=== PATIENT | male | born 2005 | race Two or more races ===

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

== ENCOUNTER 2024-06-23 12:43 | Outpatient (REF) | payer MEDICAID, SELFPAY ==
--- OUTSIDE RECORDS SUMMARY | 2024-06-23 14:46 | XMS_ITS | Encounter Summary ---
Author Organization [employer] Address [address] [place] [address] 7 [place] [address] Care Team Providers Care Production Assistant Name Role Phone Amanda Culver MD Primary Care Pro vider Reason for Visit * Reason Onset Date Comments Nurse Triage 06/22/2024 Encounter Details Date Type Department Care Team ([facility] st Contact Info) Description 06/22/2024 Telephone [facility] [address] [place], [place] [phone] Amanda Culver MD [address] [place] [address] Nurse Triage Social History Tobacco Use Types Packs/Day Years Used Date Smoking Tobacco: Never Passive Smoke Exposure: Never Smokeless Tobacco: Never Alcohol Use Standard Drinks/Week Comments Never 0 (1 standard drink = 0.6 oz pur e alcohol) Depression Answer Date Recorded Patient Health Questionnaire-9 Score 8 09/25/2023 Patient Health Questionnaire-9 Score 8 09/25/2023 Last PHQ-9: Questionnaire Data Not on file 0 09/25/2023 Housing Stability Answer Date Recorded What is your housing situation today? I have connie sing 05/23/[address] you li ve. Do you have problems with any of the following? Water leaks 05/23/2023 Food Insecurity Answer Date Recorded Within the past 12 months, y ou worried that your food would run out before you got money to buy more: Never True 01/27/2023 Within the past 12 months,th e food you bought just didn't last and you didn't have enough money to get more: Never True Transportation Answer Date Recorded In the past 12 months, has l ack of transportation kept you from medical appts, meetings, work or from getting things needed for daily living? No 01/27/2023 Utilities Answer Date Recorded In the past 12 months, has t he electric, gas, oil or water company threatened to shut off services in your home? No 01/27/2023 Depression Answer Date Recorded Patient Health Questionnaire-2 Score 2 09/25/2023 Internet Access Answer Date Recorded Internet Access Q1 Yes 12/19/2023 Internet Access Q2 Not on file 12/19/2023 Sex and Gender Information Value Date Recorded Sex Assigned at Male 02/11/2022 10:26 AM EDT Legal Sex Male 10:26 AM EDT Gender Identity Male 02/11/2022 10:26 AM EDT Sexual Orientation Straight 02/11/2022 10 :26 AM EDT documented as of this encounter Miscellaneous Notes * Telephone Encounter - Fide James LPN - 06/22/2024 10:31 AM EDT Triage call to patient Mom with patient present. Patient with concerns of hair loss and weight loss. Reports that weight currently 145 lbs. Mom reports hair loss severe all over top of head. When showering before shampoo patient hair all over his back and shower. No itching or rash reported. Patient confirms that he at times is feeling colder than normal.No new medications no supplements or herbal intake. No recent travel and no noted illness or rash when asked. Disposition reviewed and ASK/ EJeffrey VICE PRESIDENT PROCESS tomorrow at 1130am. Insurance verified at time of call. Protocol Used: No Protocol Available (Adult) Protocol-Based Disposition: See in Office or Video Visit Today or Tomorrow Video visit offer not recorded Positive Triage Question: * Nursing judgment * All higher-acuity triage questions were negative Care Advice Discussed: * Reasons To Call Back - New symptoms develop - You become worse * Telephone Encounter - Patti Mercado - 06/22/2024 10:26 AM EDT Symptoms: Weight Loss, Hair Loss Outcome: Schedule an appointment to be seen within 24 hours Reason: Caller denied all higher acuity questions The caller accepted this outcome. [phone] (chinese) documented in this encounter Plan of Treatment Upcoming Encounters Date Type Department Care Team (Late st Contact Info) Description 07/13/2024 11:00 AM EDT Office Visit [facility] [address] [place] [place] [address] Alyssa Lopez, DMD [address] [place] [address] 08/09/2024 11:00 AM EDT Office Visit [facility] [address] [place] [address] [place] [address] 08/17/2024 1:30 PM EDT Office Visit [facility] [address] [place] [address] Amanda Culver MD [address] [place] [address] documented as of this encounter Visit Diagnoses Not on filedocumented in this encounter Additional Health Concerns Assessment Noted Time PHQ-9 Depression Total Score: 8 09/25/19 24 11:15 AM EDT documented as of this encounter Care Teams Production Assistant Relationship Specialty Start Date End Date Amanda Culver MD [address] [place] [address] PCP - General Internal Medicine 07/23/22 documented as of this encounter
--- OUTSIDE RECORDS SUMMARY | 2024-06-23 14:46 | XMS_ITS | Encounter Summary ---
Author Organization [employer] Address [address] [facility] 7t [place] [address] Care Team Providers Care Bandoleer Packer Name Role Phone Amanda Culver MD Primary Care Pro vider Encounter Details Date Type Department Care Team (Latest Contact Info) Description 06/23/2024 Travel Social History Tobacco Use Types Packs/Day Years [...] your housing situation today? I have connie stewart 05/23/[address] you li [...] AM EDT documented as of this encounter Plan of Treatment Upcoming Encounters Date Type Department Care Team (Late st Contact Info) Description 07/13/2024 11:00 AM EDT Office Visit [facility] [address] [place] [address] Alyssa Lopez, DMD 230 [place] [address] 08/09/2024 11:00 AM EDT Office Visit [facility] [address] [place] [address] Derrick Zeny [address] [place] [address] 08/17/2024 1:30 PM EDT Office Visit [facility] [address] [place] [address] Amanda Culver MD [address] [place] [phone] documented as of this encounter Visit Diagnoses Not on filedocumented in this encounter Additional Health Concerns Assessment Noted Time PHQ-9 Depression Total Score: 8 09/25/19 24 11:15 AM EDT documented as of this encounter Care Teams Bandoleer Packer Relationship Specialty Start Date End Date Amanda Culver MD [address] [place] [address] PCP - General Internal Medicine 07/23/22 documented as of this encounter
--- OUTSIDE RECORDS SUMMARY | 2024-06-23 14:46 | XMS_ITS | Clinical Summary ---
Author Organization [employer] Address [address] [facility] 7t [place] [address] Care Team Providers Care Amusement Ride Operator Name Role Phone Amanda Culver MD Primary Care Pro vider Allergies No known active allergies Medications albuterol 108 (90 Base) MCG/ACT inhaler Inhale 2 puffs every 6 (six) hours if needed for wheezing. 18 g 1 4 09/25/19 25 Active ceramides (CeraVe) moisturizing cream Apply 1 Application. topically if needed for dry skin. 340 g 4 Active triamcinolone (Kenalog) 0.1 % cream Apply topically if needed in the morning and at bedtime (pain and swelling). 30 g 1 4 Active benzoyl peroxide 5 % gel Apply topically 2 times daily. 60 g 2 4 09/25/19 25 Active cetirizine (ZyrTEC) 10 MG tablet Take 1 tablet (10 mg) by mouth Once per day. 30 tablet 2 4 Active Active Problems Problem Noted Date Diagnosed Date Syncope and collapse 09/25/2023 Atopic dermatitis 08/05/2023 Pervasive developmental disorder 08/05/2023 Weight loss 08/05/2023 Dental calculus 07/21/2023 Generalized gingivitis 07/21/2023 Healthcare maintenance 11/19/2022 ADHD 11/19/2022 Asthma 11/19/2022 Anxiety 11/19/2022 Mixed hypercholesterolemia and hypertriglyceride willian 11/14/2022 Prediabetes 11/14/2022 Resolved Problems Problem Noted Date Diagnosed Date Resolved Date Adjustment disorder with mix ed disturbance of emotions and conduct 08/05/2023 09/25/2023 Childhood obesity 08/05/2023 09/25/2023 Decrease in appetite 08/05/2023 024 Decreased thyroid stimulatin g hormone (TSH) level 08/05/2023 09/25/2023 Mental disorder 08/05/2023 09/25/2023 Headache 12/11/2022 09/25/2023 Seizure 12/11/2022 09/25/2023 Subclinical hyperthyroidism 11/19/2022 09/25/2023 Allergic conjunctivitis 11/14/2022 08/0 11/2022 COVID-19 11/14/2022 11/19/2022 Ingrowing nail, right great toe 11/14/2022 11/19/2022 Vitamin D deficiency 11/14/2022 023 Encounters Date Type Department Care Team Description 06/23/2024 11:30 AM EDT Office Visit [facility] [address] [place] [address] Pauly Phelps NP Weight loss (Primary Dx) 06/23/2024 Travel 06/22/2024 Telephone [facility] [address] [place] [phone] Amanda Culver MD Nurse Triage 06/15/2024 11:00 AM EST Office Visit [facility] [address] [place] [address] Alyssa Lopez DMD 05/18/2024 11:00 AM EST Office Visit [facility] [address] [place] [address] Alyssa Lopez DMD from Last 3 Months Immunizations Name Administration Dates Next Due DTaP 11/10/2008, 6,2004,06/07,2004 DTaP / HiB / IPV 05/13/2005, 5,2004,03/20 HPV 9-Valent 11/20/2020, 7,12/11/2015,07/06 Hep A, ped/adol, 2 dose 11/20/2020,11/28/2016, Hep B, Adolescent or Pediatric 2004 Hep B, Unspecified 2004,2004, 004 HiB, unspecified 05/13/2005, 5,2004,03/20 IPV 11/10/2008, 5,2004,03/20 Influenza Whole 03/09/2008,02/11/2005 Influenza injectable quadriv alent preservative free 01/16/2021 Influenza, IIV3, injectable 02/05/2014, 3,03/10/2006 MMR 11/10/2008,02/10/2005 Meningococcal MCV4P ACYW-135 11/20/2020,07/07/19 16 Pneumococcal Conjugate PCV 7 05/13/2005, 02/10/2005,2004,06/07,2004 Tdap 07/07/2015 Varicella 11/10/2008,02/10/2005 Social History Tobacco Use Types Packs/Day Years Used Date Smoking Tobacco: Never Passive Smoke Exposure: Never Smokeless Tobacco: Never Tobacco Cessation:Counseling Given: Not Answered Alcohol Use Standard Drinks/Week Comments Never 0 [...] Orientation Straight 02/11/2022 10 :26 AM EDT Last Filed Vital Signs Vital Sign Reading Time Taken Comments Blood Pressure 133/75 06/23/2024 11:52 AM EDT Pulse 96 06/23/2024 11:52 AM EDT Temperature 36.1 ??C (97 ??F) 06/23/2024 11:52 AM EDT Respiratory Rate 20 06/23/2024 11:52 AM EDT Oxygen Saturation 100% 06/23/2024 11:52 AM EDT Inhaled Oxygen Concentration - - Weight 67.4 kg (148 lb 9.6 oz) 06/23/2024 11:52 AM EDT Height 175.3 cm (5' 9 ) 06/23/2024 11:52 AM EDT Body Mass Index 21.94 06/23/2024 11:52 AM EDT Plan of Treatment Upcoming Encounters Date Type Department Care Team (Late st Contact Info) Description 07/13/2024 11:00 AM EDT Office Visit [facility] [address] [place] [address] Alyssa Lopez, DMD [address] [place] [address] 08/09/2024 11:00 AM EDT Office Visit [facility] [address] [place] [address] Zeny Meza [address] [place] [address] 08/17/2024 1:30 PM EDT Office Visit [facility] [address] [place] [address] Amanda Culver MD [address] [place] [address] Health Maintenance Due Date Last Done Comments Chlamydia and Gonorrhea Screening 2004 Family Planning (PISQ) 01/11/2019 Pneumococcal Vaccine: Pediatrics (0 to 5 Years) and At-Risk Patients (6 to 49) Years) (1 of 2 - PCV) 01/11/2023 05/13/2005, 02/10/2005, 2004, Additional history exists Diabetes: Hemoglobin A1C 11/19/2023 023, 04/27/2021, 11/20/2020 COVID-19 Vaccine ( season) 2023 Influenza Vaccine (#1) 2023 , 02/05/2014, 02/03/2013, Additional history exists Dental Oral Exam 01/21/2024 07/21/2023 Dental Prophylaxis 01/21/2024 07/21/2023, 07/11/2022 SDOH Screening 05/23/2024 05/23/2023 Dental X-Ray: Bitewings 07/21/2024 07/21/2023 Depression Screening 09/24/2024 09/25/2023, 09/25/19 Alcohol/Substance Use Screening 06/23/2025 06/23/2024 Tobacco Screening 06/23/2025 06/23/2024 DTaP/Tdap/Td Vaccines (7 - Td or Tdap) 07/06/2025 07/07/2015, 11/10/2008, 07/12/2005, Additional history exists Dental X-Ray: Full Mouth 10/23/2025 10/22/2022, 0508/2021 Zoster Vaccines (1 of 2) 01/11/2054 RSV Patients and Patients Aged 60 years or older (1 - 1-dose 75+ series) 01/11/2079 Hepatitis B Vaccines Completed 2004, 2004, 2004, Additional history exists HIB Vaccines Completed 05/13/2005, 04/16, 2004, Additional history exists IPV Vaccines Completed 11/10/2008, 04/16, 2004, Additional history exists HPV Vaccines Completed 11/20/2020, 09/2016, 12/11/2015, Additional history exists Hepatitis A Vaccines Completed 11/20/2020, 11/28/2016, 12/11/2015 Meningococcal Vaccine Completed 11/20/2020, 016 HIV Screening Completed 11/18/2022, 04/27/2021 Hepatitis C Screening Completed 11/18/2022 RSV under 20 months Aged Out No longe r eligible based on patient's age to complete this topic Rotavirus Vaccines Aged Out No longer eligible based on patient's age to complete this topic Procedures Procedure Name Priority Date/Time Associated Diagnosis Comments NO CHARGE, PERIODIC ORTHODONTIC TREATMENT VISITS Routine 06/15/2024 11:00 AM EST NO CHARGE, PERIODIC ORTHODONTIC TREATMENT VISITS Routine 05/18/2024 11:00 AM EST PROPHYLAXIS - ADULT Routine 07/21/2023 1 0:00 AM EDT Dental calculus BITEWINGS - 4 RADIOGRAPHIC IMAGES Routine 07/21/2023 10:00 AM EDT Dental calculus PERIODIC ORAL EVALUATION - ESTABLISHED PATIENT Routine 07/21/2023 10:00 AM EDT HEPATITIS C ANTIBODY REFLEX Routine 11/18/2022 11:34 AM EDT HIV ANTIBODY/ANTIGEN ([place] [facility]) Routine 11/18/2022 11:34 AM EDT HEMOGLOBIN A1C Routine 11/18/2022 11:34 AM EDT Health care maintenance from Last 3 Months or Most Recently Relevant to Health Maintenance Results * Hepatitis C Antibody Reflex (11/18/2022 11:34 AM EDT) Hepatitis C Antibody Nonreactive Nonreactive [facility] Comment:Antibodies to HCV no t detected; does not exclude early acuteHCV infection. 11/18/2022 11:3 4 AM EDT 11/18/2022 1:35 PM EDT us Amanda Robert MD LAB BLOOD ORDERAB LES Final Result [facility] [address] [place] [address] [phone] * HIV Ab/Ag (RENITA BASS) (11/18/2022 11:34 AM EDT) HIV AB/AG Nonreactive Nonreactive [facility] Comment:HIV-1 p24 Ag and/or HIV-1/HIV-2 Ab not detected.A test result that is nonreactive does not exclude thepossibility of exposure to or infection with HIV-1 and/orHIV-2. Nonreactive results in this assay for individualswith prior exposure to HIV-1 and/or HIV-2 may be due toantigen and antibody levels that are below the limit ofdetection of this assay.The [employer] [facility] HIV Ag/Ab Combo assay result andsupplemental assay results should be interpreted inconjunction with the patient's clinical presentation,history and other laboratory results. If the results areinconsistent with clinical evidence, additional testing issuggested to confirm the result. 11/18/2022 11:3 4 AM EDT 11/18/2022 1:35 PM EDT us Amanda Robert MD LAB BLOOD ORDERAB LES Final Result [facility] [address] [place] [address] [phone] * Hemoglobin A1c (11/18/2022 11:34 AM EDT) Hemoglobin A1c 5.0 % [facility] Comment:Hemoglobin A1C Refer ence Range Adults: 4.8 - 6.0 % Non diabetic: < 6.0 % Goal: < 7.0 %Additional Action Suggested: > 8.0 %Note: Hemoglobin A1c results are invalid for patients with abnormal amounts of HbF. Blood transfusions may impact the HbA1c concentration in the patient sample. Estimated Average Glucose 97 mg/dL [facility] Comment:eAG = Estimated ave rage glucose which is %A1C expressed asaverage glucose, using the formula of the [id number]-[id number] Glucose study (ADAG), Diabetes Care, Vol.31,#8,2007 Blood Venous blood specimen / Unknown 11/18/2022 11:34 AM EDT 11/18/2022 1:35 PM EDT Amanda Robert MD LAB BLOOD ORDERAB LES Final Result [facility] [address] [place] [address] [phone] from Last 3 Months or Most Recently Relevant to Health Maintenance [place] [address] [place] [address] [facility] [facility] [facility] ST[place] Care Teams Amusement Ride Operator Relationship Specialty Start Date End Date Amanda Culver MD [address] [place] [address] [phone] PCP - General Internal Medicine 07/23/22
--- OUTSIDE RECORDS SUMMARY | 2024-06-23 14:46 | XMS_ITS | Encounter Summary ---
Author Organization [employer] Address [address] [facility] 7t [place] [address] Care Team Providers Care Lost And Found Clerk Name Role Phone Amanda Culver MD Primary Care Pro vider Encounter Details Date Type Department Care Team ([facility] st Contact Info) Description 06/23/2024 11:30 AM EDT Office Visit [facility] [address] [place], [place] [phone] Pauly Phelps NP [address] [place], [place] [phone] Weight loss (Primary Dx) Social History Tobacco Use Types Packs/Day Years [...] AM EDT documented as of this encounter Last Filed Vital Signs Vital Sign Reading [...] Mass Index 21.94 06/23/2024 11:52 AM EDT documented in this encounter Plan of Treatment Upcoming Encounters Date Type Department Care Team (Late st Contact Info) Description 07/13/2024 11:00 AM EDT Office Visit [facility] [address] [place] [address] Alyssa Lopez, SARAH [address] [place] [address] 08/09/2024 11:00 AM EDT Office Visit [facility] [address] [place] [address] Zeny Meza [address] [place] [address] 08/17/2024 1:30 PM EDT Office Visit [facility] [address] [place] [address] Amanda Culver MD [address] [place] [address] Scheduled Orders Name Type Priority Associated Diagnoses Orde r Schedule Comprehensive Metabolic Panel Lab Routine Weight loss Expected: 06/23/2024 (Approximate), Expires: 06/23/2025 TSH W/Reflex to FT4 Lab Routine Weight loss Expected: 06/23/2024 (Approximate), Expires: 06/23/2025 CBC auto differential Lab Routine Weight loss Expected: 06/23/2024 (Approximate), Expires: 06/23/2025 Hemoglobin A1c Lab Routine Weight loss Expected: 06/23/2024 (Approximate), Expires: 06/23/2025 documented as of this encounter Visit Diagnoses Diagnosis Weight loss- Primary Loss of weight documented in this encounter Additional Health Concerns Assessment Noted Time PHQ-9 Depression Total Score: 8 09/25/19 24 11:15 AM EDT documented as of this encounter Care Teams Lost And Found Clerk Relationship Specialty Start Date End Date Amanda Culver MD [address] [place] [phone] PCP - General Internal Medicine 07/23/22 documented as of this encounter
--- OUTSIDE RECORDS SUMMARY | 2024-06-23 14:46 | XMS_ITS | Encounter Summary ---
Author Organization [employer] Address [address] [place] [address] 7t [place] [address] Care Team Providers Care Podiatrist Assistant Name Role Phone Aleyda Briceno MD Primary Care Provider +- Nicole Ruiz Primary Care Provider + Amanda Culver MD Primary Care Pro vider Encounter Details Date Type Department Care Team (Late st Contact Info) Description 03/28/2022 Abstract [facility] [address] [place] [address] Yamileth Sorto DMD Social History Tobacco Use Types Packs/Day Years Used Date Smoking Tobacco: Never Assessed Sex and Gender Information Value Date Recorded Sex Assigned at Male 02/11/2022 10:26 AM EDT Legal Sex Male 10:26 AM EDT Gender Identity Male 02/11/2022 10:26 AM EDT Sexual Orientation Straight 02/11/2022 10 :26 AM EDT documented as of this encounter Plan of Treatment Upcoming Encounters Date Type Department Care Team (Late st Contact Info) Description 07/13/2024 11:00 AM EDT Office Visit [facility] [address] [place] [address] Alyssa Lopez DMD [address] [place] [address] 08/09/2024 11:00 AM EDT Office Visit [facility] [address] [place] [address] Zeny Meza [address] [place] [address] 08/17/2024 1:30 PM EDT Office Visit [facility] [address] [place] [address] Amanda Culver MD [address] [place] [address] documented as of this encounter Visit Diagnoses Not on filedocumented in this encounter Care Teams Podiatrist Assistant Relationship Specialty Start Date End Date Aleyda Briceno MD [address] [place] [address] [phone] PCP - General Pediatrics 11/02/20 06/10/22 Nicole Ruiz FNP [address] [place] [phone] PCP - General Family Medicine 06/11/22 07/22/22 Amanda Culver MD [address] [place] [address] PCP - General Internal Medicine 07/23/22 documented as of this encounter
--- OUTSIDE RECORDS SUMMARY | 2024-06-23 14:46 | XMS_ITS | Encounter Summary ---
Author Organization [employer] Address [address] [facility] 7t [place] [address] Care Team Providers Care Insecticide Maker Name Role Phone Amanda Culver MD Primary Care Pro vider Reason for Visit * Reason Comments Orthodontics Encounter Details Date Type Department Care Team ([facility] st Contact Info) Description 06/15/2024 11:00 AM EST Office Visit [facility] [address] [place], [place] [phone] Alyssa Lopez, DMD [address] [place] [address] Social History Tobacco Use Types Packs/Day Years [...] AM EDT documented as of this encounter Progress Notes * Alyssa Lopez DMD - 06/15/2024 11:00 AM EST Time Out Name and verified with patient on Timeout Date: 06/15/24 (ortho), Timeout Time: 1117 by Alyssa Lopez DMD. Confirmed site with parent/guardian, provider and nursing home assistant administrator Yokasta by highlighting chart, confirming in patient mouth and on the patients x-rays for the following procedure: ortho Peter Hermila PARTIDA is a 19 y.o. male and presents with patient for an orthodontic adjustment. Medical History Past Medical History: Diagnosis Date Acne vulgaris ADHD Asthma Elevated triglycerides with high cholesterol Hyperthyroidism Orthodontics Prediabetes Vitamin D deficiency Current Outpatient Medications: albuterol 108 (90 Base) MCG/ACT inhaler, Inhale 2 puffs every 6 (six) hours if needed for wheezing., Disp: 18 g, Rfl: 1 benzoyl peroxide 5 % gel, Apply topically 2 times daily., Disp: 60 g, Rfl: 2 ceramides (CeraVe) moisturizing cream, Apply 1 Application. topically if needed for dry skin., Disp: 340 g, Rfl: 0 triamcinolone (Kenalog) 0.1 % cream, Apply topically if needed in the morning and at bedtime (pain and swelling)., Disp: 30 g, Rfl: 1 cetirizine (ZyrTEC) 10 MG tablet, Take 1 tablet (10 mg) by mouth Once per day., Disp: 30 tablet, Rfl: 2 Allergies as of 06/15/2024 (No Known Allergies) Dental procedures in this visit [id number] - NO CHARGE, PERIODIC ORTHODONTIC TREATMENT VISITS (Completed) Service provider: Alyssa Lopez DMD Billing provider: Alyssa Lopez DMD U: [id number], OPC 6-6 L: [id number] [id number], singles [place] poor - stressed marked improvement is needed. Elastics: Class II FT 4.5oz - patient still using elastics as Class III, reviewed again. Instructedpatient to use FT, patient is only using at night. NV: PANO, photos, adj documented in this encounter Plan of Treatment Upcoming Encounters Date Type Department Care Team (Late st Contact Info) Description 07/13/2024 11:00 AM EDT Office Visit [facility] [address] [place] [phone] Alyssa Lopez DMD [address] [place] [address] 08/09/2024 11:00 AM EDT Office Visit [facility] [address] [place] [address] Harvey Mezaaris [address] [place] [address] 08/17/2024 1:30 PM EDT Office Visit [facility] [address] [place] [phone] Amanda Culver MD [address] [place] [phone] Scheduled Orders Name Type Priority Associated Diagnoses Orde r Schedule NO CHARGE, PERIODIC ORTHODONTIC TREATMENT VISITS Dental Routine [address] [place]ting 06/15/2024 documented as of this encounter Procedures Procedure Name Priority Date/Time Associated Diagnosis Comments NO CHARGE, PERIODIC ORTHODONTIC TREATMENT VISITS Routine 06/15/2024 11:00 AM EST documented in this encounter Visit Diagnoses Not on filedocumented in this encounter Additional Health Concerns Assessment Noted Time PHQ-9 Depression Total Score: 8 09/25/19 24 11:15 AM EDT documented as of this encounter Care Teams Insecticide Maker Relationship Specialty Start Date End Date Amanda Culver MD [address] [place] [phone] PCP - General Internal Medicine 07/23/22 documented as of this encounter
[2024-06-23 16:53] LABS: MANUAL DIFF FLAG NO
[2024-06-23 17:07] LABS: Estimated Average Glucose 100 mg/dL; Hemoglobin A1c % 5.1 % (<6.0)
[2024-06-23 17:08] LABS: Basophils Absolute Auto 0.1 X10*3/uL (0.0-0.2); Eosinophils Absolute Auto 0.2 X10*3/uL (0.0-0.4); Eosinophils Percent Auto 2.7 % (0-4); Hematocrit 47.9 % (42.0-52.0); Hemoglobin 16.3 g/dl (14.0-18.0); Imm Gran Abs Auto 0.02 X10*3/uL (0.00-0.03); Imm Gran Pct Auto 0.3 % (0.0-0.4); Lymphocytes Absolute Auto 2.1 X10*3/uL (1.2-4.9); Lymphocytes Percent Auto 36.8 % (20-40); Mean Corpuscular Volume 88.1 fL (80.0-98.0); Mean Platelet Volume 10.5 fL (9.4-12.4); Monocytes Absolute Auto 0.7 X10*3/uL (0.1-1.2); Monocytes Percent Auto 11.2 % (2-11); Neutrophils Absolute Auto 2.8 x10*3/uL (2.0-8.3); Platelet Count 307 X10*3/uL (160-400); Red Blood Count 5.44 X10*6/uL (4.60-5.80); Red Cell Distribution Width 12.1 % (11.0-16.0); White Blood Count 5.8 X10*3/uL (4.8-10.8)
[2024-06-23 17:30] LABS: Alanine Aminotransferase 19 U/L (0-40); Albumin Level 4.7 g/dL (3.5-5.0); Alkaline Phosphatase 79 U/L (39-117); Anion Gap 12 (12-20); Aspartate Amino Transferase 26 U/L (5-37); Bilirubin Total 0.9 mg/dL (0.0-1.0); Blood Urea Nitrogen 17 mg/dL (9-16); Calcium 10.3 mg/dL (8.4-10.2); Carbon Dioxide 28 mmol/L (22-29); Chloride 106 mmol/L (96-108); Estimated Glomerular Filt Rate > 60; Glucose Random 88 mg/dL (60-115); Potassium 5.2 mmol/L (3.3-5.1); Sodium 141 mmol/L (135-145); TSH reflex Free T4 0.35 uIU/mL (0.32-4.0); Total Protein 8.6 g/dL (6.5-8.0)
== END 2024-06-23 12:44 | disposition home or self-care (01) ==
LOC: HO.HHCL 12:43
PROVIDERS: Visit Provider Nurse Practitioner Family
DX: R63.4 Abnormal weight loss (principal)
CPT/HCPCS: 36415; 80053; 83036; 84443; 85025